=== PATIENT | male | born 1995 | race Hispanic/Latino ===

== ENCOUNTER 2018-03-08 11:40 | Emergency (ER) | payer SELFPAY ==
[2018-03-08] MEDS ORDERED: Proparacaine 0.5% Opth 15 ML BOT ONE (12:29)
[2018-03-08] MEDS ORDERED: Fluorescein Opthalmic Strip ONE (12:29)
== END 2018-03-08 12:45 | disposition home or self-care (01) ==
LOC: ERS 11:40
DX: H10.023 Other mucopurulent conjunctivitis, bilateral (principal); Z71.6 Tobacco abuse counseling; F17.210 Nicotine dependence, cigarettes, uncomplicated
CPT/HCPCS: 99406